=== PATIENT | male | born 1965 | race Caucasian/White ===

== ENCOUNTER 2021-06-12 10:02 | Inpatient (IN) | payer BC ==
[2021-06-12] MEDS ORDERED: ONDANSETRON 4 MG/2 ML VIAL IVP STA (10:42)
[2021-06-12] MEDS ORDERED: ACETAMINOPHEN TAB 500 MG TAB PO STA (10:42)
[2021-06-12] MEDS ORDERED: MORPHINE SULFATE 4 MG/ML SYRINGE IVP STA (10:42)
[2021-06-12] MEDS ORDERED: SODIUM CHLORIDE 0.9% 1,000 ML IV STA ×2 (10:42→12:42)
--- NOTE | 2021-06-12 10:49 | ED ---
General Adult HPI - General Chief complaint: Abdominal Pain Stated complaint: Abdominal Pain Time Seen by Provider: 06/12/21 10:27 Source: patient, RN notes reviewed Mode of arrival: ambulatory Limitations: no limitations - History of Present Illness Initial comments: 55-year-old male presents to the emergency room for a chief complaint of abdominal pain. Patient states for the past 2 days he has had left lower quadrant abdominal pain. States that it does not seem to go away. Patient denies nausea or vomiting. Denies diarrhea. Did admit to chills yesterday but no fevers that he is aware of. Patient states he could not work today because of the pain so came to the emergency room. Patient has no other complaints at this time including shortness of breath, chest pain, nausea or vomiting, headache, or visual changes. - Related Data Home Medications Medication Instructions Recorded Confirmed Ibuprofen [Motrin] 800 mg PO Q8H PRN 06/12/21 06/12/21 Allergies Allergy/AdvReac Type Severity Reaction Status Date / Time No Known Allergies Allergy Verified 06/12/21 11:46 Review of Systems ROS Statement: Those systems with pertinent positive or pertinent negative responses have been documented in the HPI. ROS Other: All systems not noted in ROS Statement are negative. Past Medical History Past Medical History: No Reported History History of Any Multi-Drug Resistant Organisms: None Reported Past Surgical History: No Surgical Hx Reported Past Psychological History: No Psychological Hx Reported Smoking Status: Current every day smoker Past Alcohol Use History: Rare Past Drug Use History: None Reported General Exam Limitations: no limitations General appearance: alert, in no apparent distress Head exam: Present: atraumatic, normocephalic Eye exam: Present: normal appearance, PERRL, EOMI. Absent: scleral icterus, conjunctival injection ENT exam: Present: normal exam, mucous membranes moist Neck exam: Present: normal inspection, full ROM. Absent: tenderness Respiratory exam: Present: normal lung sounds bilaterally. Absent: respiratory distress, wheezes Cardiovascular Exam: Present: regular rate, normal rhythm, normal heart sounds GI/Abdominal exam: Present: soft, tenderness (LLQ tenderness, no RLQ or upper abd tenderness), normal bowel sounds. Absent: distended Course Vital Signs 06/12/21 10:11 Temperature 99.3 F Pulse Rate 117 H Respiratory 18 Rate Blood Pressure 113/69 O2 Sat by Pulse 98 Oximetry Medical Decision Making - Medical Decision Making Vitals are stable. CBC does show leukocytosis with a left shift significant at 25. CMP unremarkable. Urinalysis shows sigmoid diverticulitis without definable abscess. Given leukocytosis, fever, and tenderness case was discussed with Dr. Bowers, recommends admission with IV antibiotics given elevated white count and tenderness. Discussed with the patient, he is agreeable. Source of infection was confirmed at 1132. Patient was started on IV antibiotics within 3 hours of this. - Lab Data Result diagrams: 06/12/21 10:44 06/12/21 10:44 Lab Results 06/12/21 06/12/21 06/12/21 Range/Units 10:44 10:44 10:44 WBC 25.4 H (3.8-10.6) k/uL RBC 4.86 (4.30-5.90) m/uL Hgb 14.9 (13.0-17.5) gm/dL Hct 43.4 (39.0-53.0) % MCV 89.4 (80.0-100.0) fL MCH 30.7 (25.0-35.0) pg MCHC 34.3 (31.0-37.0) g/dL RDW 13.1 (11.5-15.5) % Plt Count 349 (150-450) k/uL MPV 7.9 Neutrophils % 88 % Lymphocytes % 6 % Monocytes % 3 % Eosinophils % 1 % Basophils % 0 % Neutrophils # 22.5 H (1.3-7.7) k/uL Lymphocytes # 1.5 (1.0-4.8) k/uL Monocytes # 0.9 (0-1.0) k/uL Eosinophils # 0.3 (0-0.7) k/uL Basophils # 0.0 (0-0.2) k/uL Sodium 138 (137-145) mmol/L Potassium 4.2 (3.5-5.1) mmol/L Chloride 103 (98-107) mmol/L Carbon Dioxide 25 (22-30) mmol/L Anion Gap 10 mmol/L BUN 23 H (9-20) mg/dL Creatinine 1.32 H (0.66-1.25) mg/dL Est GFR (CKD-EPI)AfAm 71 (>60 ml/min/1.73 sqM) Est GFR (CKD-EPI)NonAf 61 (>60 ml/min/1.73 sqM) Glucose 115 H (74-99) mg/dL Plasma Lactic Acid Tree (0.7-2.0) mmol/L Calcium 9.7 (8.4-10.2) mg/dL Total Bilirubin 1.2 (0.2-1.3) mg/dL AST 40 (17-59) U/L ALT 59 H (4-49) U/L Alkaline Phosphatase 104 (38-126) U/L Total Protein 7.5 (6.3-8.2) g/dL Albumin 4.6 (3.5-5.0) g/dL Amylase 51 (30-110) U/L Lipase 25 (23-300) U/L Urine Color [place] Urine Appearance Cloudy (Clear) Urine pH 5.5 (5.0-8.0) Ur Specific [place] 1.029 (1.001-1.035) Urine Protein 1+ H (Negative) Urine Glucose (UA) Negative (Negative) Urine Ketones 1+ H (Negative) Urine Blood Small H (Negative) Urine Nitrite Negative (Negative) Urine Bilirubin 1+ H (Negative) Urine Urobilinogen 2.0 (<2.0) mg/dL Ur Leukocyte Esterase Negative (Negative) Urine RBC 3 (0-5) /hpf Urine WBC 7 H (0-5) /hpf Ur Squamous Epith Cells <1 (0-4) /hpf Urine Bacteria Rare H (None) /hpf Hyaline Casts 14 H (0-2) /lpf Urine Mucus Many H (None) /hpf 06/12/21 Range/Units 10:44 WBC (3.8-10.6) k/uL RBC (4.30-5.90) m/uL Hgb (13.0-17.5) gm/dL Hct (39.0-53.0) % MCV (80.0-100.0) fL MCH (25.0-35.0) pg MCHC (31.0-37.0) g/dL RDW (11.5-15.5) % Plt Count (150-450) k/uL MPV Neutrophils % % Lymphocytes % % Monocytes % % Eosinophils % % Basophils % % Neutrophils # (1.3-7.7) k/uL Lymphocytes # (1.0-4.8) k/uL Monocytes # (0-1.0) k/uL Eosinophils # (0-0.7) k/uL Basophils # (0-0.2) k/uL Sodium (137-145) mmol/L Potassium (3.5-5.1) mmol/L Chloride (98-107) mmol/L Carbon Dioxide (22-30) mmol/L Anion Gap mmol/L BUN (9-20) mg/dL Creatinine (0.66-1.25) mg/dL Est GFR (CKD-EPI)AfAm (>60 ml/min/1.73 sqM) Est GFR (CKD-EPI)NonAf (>60 ml/min/1.73 sqM) Glucose (74-99) mg/dL Plasma Lactic Acid Tree 1.0 (0.7-2.0) mmol/L Calcium (8.4-10.2) mg/dL Total Bilirubin (0.2-1.3) mg/dL AST (17-59) U/L ALT (4-49) U/L Alkaline Phosphatase (38-126) U/L Total Protein (6.3-8.2) g/dL Albumin (3.5-5.0) g/dL Amylase (30-110) U/L Lipase (23-300) U/L Urine Color Urine Appearance (Clear) Urine pH (5.0-8.0) Ur Specific [place] (1.001-1.035) Urine Protein (Negative) Urine Glucose (UA) (Negative) Urine Ketones (Negative) Urine Blood (Negative) Urine Nitrite (Negative) Urine Bilirubin (Negative) Urine Urobilinogen (<2.0) mg/dL Ur Leukocyte Esterase (Negative) Urine RBC (0-5) /hpf Urine WBC (0-5) /hpf Ur Squamous Epith Cells (0-4) /hpf Urine Bacteria (None) /hpf Hyaline Casts (0-2) /lpf Urine Mucus (None) /hpf Disposition Clinical Impression: Diverticulitis, Leukocytosis Disposition: ADMITTED IP TO THIS HOSP Is patient prescribed a controlled substance at d/c from ED?: No Referrals: None,Stated [Primary Care Provider] - 1-2 days Time of Disposition: 12:45
[2021-06-12 11:04] LABS: Basophils % (A) 0 %; Eosinophils # (A) 0.3 k/uL (0-0.7); Eosinophils % (A) 1 %; HCT 43.4 % (39.0-53.0); HGB 14.9 gm/dL (13.0-17.5); Lymphocytes # (A) 1.5 k/uL (1.0-4.8); Lymphocytes % (A) 6 %; MCH 30.7 pg (25.0-35.0); MCHC 34.3 g/dL (31.0-37.0); MCV 89.4 fL (80.0-100.0); Mean Platelet Volume 7.9; Monocytes # (A) 0.9 k/uL (0-1.0); Monocytes % (A) 3 %; Neutrophils # (A) 22.5 k/uL (1.3-7.7); Neutrophils % (A) 88 %; Platelet Count 349 k/uL (150-450); RBC 4.86 m/uL (4.30-5.90); RDW 13.1 % (11.5-15.5); WBC 25.4 k/uL (3.8-10.6)
[2021-06-12 11:10] LABS: Appearance,Urine Cloudy (Clear); Bacteria,Urine Rare /hpf; Bilirubin,Urine 1+ (Negative); Blood,Urine Small (Negative); Color,Urine Orange; Glucose,Urine (UA) Negative (Negative); Hyaline Casts,Urine 14 /lpf (0-2); Ketones,Urine 1+ (Negative); Leukocyte Esterase,Urine Negative (Negative); Mucus,Urine Many /hpf; Nitrite,Urine Negative (Negative); PH, Urine 5.5 (5.0-8.0); Protein,Urine 1+ (Negative); RBC,Urine 3 /hpf (0-5); Specific Gravity,Urine 1.029 (1.001-1.035); Squamous Epithelial Cell,Urine <1 /hpf (0-4); WBC,Urine 7 /hpf (0-5)
[2021-06-12 11:26] LABS: Albumin 4.6 g/dL (3.5-5.0); Calcium 9.7 mg/dL (8.4-10.2); Potassium 4.2 mmol/L (3.5-5.1); Total Bilirubin 1.2 mg/dL (0.2-1.3); Total Protein 7.5 g/dL (6.3-8.2)
--- NOTE | 2021-06-12 11:36 | CT ---
EXAMINATION TYPE: CT abdomen pelvis w con DATE OF EXAM: 06/12/2021 COMPARISON: None HISTORY: Left sided pain with nausea for [address] DLP: 831.8 mGycm CONTRAST: CT scan of the abdomen and pelvis is performed without Oral Contrast and with IV Contrast, patient in jected with 100 mL of Isovue 300. FINDINGS: LUNG BASES-: No visible nodule. No infiltrate. LIVER/GB: No calcified gallstones. No space occupying hepatic lesion. Biliary tree is of normal ca liber. PANCREAS: No inflammation. No distinct mass. SPLEEN: No splenic enlargement. No lesion seen. ADRENALS: No nodule. No thickening. KIDNEYS/BLADDER: No hydronephrosis. No nephrolithiasis. No distinct renal mass. Urinary bladder g rossly unremarkable. BOWEL: There is wall thickening and inflammatory change surrounding the sigmoid colon compatible with sigmoid diverticulitis. No definable abscess at this time. There is mild ileus of the small bowel. N o evidence for pneumoperitoneum. Nonvisualization of the appendix. GENITAL ORGANS: No gross abnormality. LYMPH NODES: No greater than 1cm abdominal or pelvic lymph nodes are appreciated. AORTA: No significant abnormality. OSSEOUS STRUCTURES: No significant abnormality is seen. OTHER: No significant additional abnormality is seen. IMPRESSION: 1. Sigmoid diverticulitis without definable abscess at this time.
[2021-06-12] MEDS ORDERED: PIPERACILLIN-TAZOBACTAM 3.375 GM in SODIUM CHLORIDE 0.9% 100 ML IVPB STA (12:42)
[2021-06-12] MEDS ORDERED: NALOXONE 0.4 MG/ML 1 ML VIAL IV PRN (12:46)
[2021-06-12] MEDS ORDERED: ONDANSETRON 4 MG/2 ML VIAL IVP PRN (12:46)
[2021-06-12] MEDS: SODIUM CHLORIDE 0.9% 1,000 ML IV SCH (13:11)
[2021-06-12] MEDS ORDERED: ACETAMINOPHEN TAB 325 MG TAB PO PRN (19:42)
[2021-06-12] MEDS: PIPERACILLIN-TAZOBACTAM 3.375 GM in SODIUM CHLORIDE 0.9% 100 ML IVPB SCH (20:44)
[2021-06-13] MEDS: PIPERACILLIN-TAZOBACTAM 3.375 GM in SODIUM CHLORIDE 0.9% 100 ML IVPB SCH ×3 (03:56→20:12)
[2021-06-13] MEDS: HYDROmorphone 0.5 MG/0.5 ML SYRINGE IVP PRN ×3 (04:01→17:41)
[2021-06-13] MEDS: SODIUM CHLORIDE 0.9% 1,000 ML IV SCH ×4 (05:33→20:13)
[2021-06-14] MEDS: HYDROmorphone 0.5 MG/0.5 ML SYRINGE IVP PRN (03:49)
[2021-06-14] MEDS: SODIUM CHLORIDE 0.9% 1,000 ML IV SCH ×4 (03:49→19:26)
[2021-06-14] MEDS: PIPERACILLIN-TAZOBACTAM 3.375 GM in SODIUM CHLORIDE 0.9% 100 ML IVPB SCH ×3 (04:30→19:21)
[2021-06-14 09:09] LABS: Basophils % (A) 0 %; Eosinophils # (A) 0.8 k/uL (0-0.7); Eosinophils % (A) 5 %; HCT 37.8 % (39.0-53.0); HGB 12.7 gm/dL (13.0-17.5); Lymphocytes # (A) 1.4 k/uL (1.0-4.8); Lymphocytes % (A) 10 %; MCH 30.2 pg (25.0-35.0); MCHC 33.6 g/dL (31.0-37.0); MCV 89.8 fL (80.0-100.0); Mean Platelet Volume 7.7; Monocytes # (A) 0.8 k/uL (0-1.0); Monocytes % (A) 6 %; Neutrophils # (A) 10.6 k/uL (1.3-7.7); Neutrophils % (A) 76 %; Platelet Count 326 k/uL (150-450); RBC 4.21 m/uL (4.30-5.90); RDW 13.1 % (11.5-15.5); WBC 13.8 k/uL (3.8-10.6)
--- NOTE | 2021-06-14 09:14 | P.PN ---
Progress Note - Text Progress Note Date: 06/13/21 Patient feels better today. His abdomen is soft. He is mildly tender left lower quadrant. On exam her lesser stable. Abdomen soft. Improving diverticula is. Patient will have his diet advanced tomorrow.
--- NOTE | 2021-06-14 09:14 | P.GSHP ---
History of Present Illness H&P Date: 06/12/21 Chief Complaint: Diverticulitis This is a 55-year-old male who was admitted to the hospital through the emergency. Patient points of abdominal pain. He was worked up found have evidence of diverticulitis without abscess. He's been admitted to the hospital for IV antibiotics. Past Medical History Past Medical History: No Reported History Additional Past Medical History / Comment(s): 06/12/21 Admitted with diverticulitis History of Any Multi-Drug Resistant Organisms: None Reported Past Surgical History: Hernia Repair Past Psychological History: No Psychological Hx Reported Smoking Status: Current every day smoker Past Alcohol Use History: Occasional Past Drug Use History: None Reported - Past Family History Father Additional Family Medical History / Comment(s): "pre-diabetic" Medications and Allergies Home Medications Medication Instructions Recorded Confirmed Type Ibuprofen [Motrin] 800 mg PO Q8H PRN 06/12/21 06/12/21 History Allergies Allergy/AdvReac Type Severity Reaction Status Date / Time No Known Allergies Allergy Verified 06/12/21 11:46 Surgical - Exam Vital Signs Temp Pulse Resp BP Pulse Ox 99.3 F 117 H 18 113/69 98 06/12/21 10:11 06/12/21 10:11 06/12/21 10:11 06/12/21 10:11 06/12/21 10:11 - General well nourished, no distress - Eyes PERRL - ENT normal pinna - Neck no masses - Respiratory normal expansion - Cardiovascular Rhythm: regular - Abdomen Abdomen: soft, non tender Results - Labs 06/14/21 08:20 06/12/21 10:44 Abnormal Lab Results - Last 24 Hours (Table) 06/14/21 Range/Units 08:20 WBC 13.8 H (3.8-10.6) k/uL RBC 4.21 L (4.30-5.90) m/uL Hgb 12.7 L (13.0-17.5) gm/dL Hct 37.8 L (39.0-53.0) % Neutrophils # 10.6 H (1.3-7.7) k/uL Eosinophils # 0.8 H (0-0.7) k/uL Assessment and Plan Assessment: Diverticulosis. Patient will receive IV and buttocks in remain on clear liquids.
[2021-06-14 09:30] LABS: ALT 22 U/L (4-49); AST 17 U/L (17-59); African American GFR (CKD) >90 (>60 ml/min/1.73 sqM); Albumin 3.2 g/dL (3.5-5.0); Albumin/Globulin Ratio 1.2; Alkaline Phosphatase 92 U/L (38-126); Anion Gap 7 mmol/L; Blood Urea Nitrogen 11 mg/dL (9-20); Calcium 8.6 mg/dL (8.4-10.2); Carbon Dioxide 26 mmol/L (22-30); Chloride 104 mmol/L (98-107); Globulin 2.6 g/dL; Glucose 97 mg/dL (74-99); Non-African American GFR(CKD) >90 (>60 ml/min/1.73 sqM); Potassium 3.9 mmol/L (3.5-5.1); Sodium 137 mmol/L (137-145); Total Bilirubin 0.7 mg/dL (0.2-1.3); Total Protein 5.8 g/dL (6.3-8.2)
--- NOTE | 2021-06-14 12:01 | P.PN ---
Subjective Progress Note Date: 06/14/21 CHIEF COMPLAINT: Acute diverticulitis HISTORY OF PRESENT ILLNESS: Patient's abdominal pain has decreased greatly. He denies any nausea or vomiting. He reports having bowel movements. His white count has decreased from 25.4-13.8. He's afebrile. He is tolerating clear liquid diet. PHYSICAL EXAM: VITAL SIGNS: Reviewed. GENERAL: Well-developed in no acute distress. HEENT: No sclera icterus. Extraocular movements grossly intact. Moist buccal mucosa. Head is atraumatic, normocephalic. ABDOMEN: Soft. Nondistended. Minimal tenderness to palpation left lower quadrant NEUROLOGIC: Alert and oriented. Cranial nerves II through XII grossly intact. ASSESSMENT: 1. Acute diverticulitis of sigmoid colon without abscess PLAN: -Continue IV antibiotics -Advance diet to full liquids -Continue pain medication as needed -Encourage patient to ambulate -Repeat CBC in a.m. Physician History Teacher note has been reviewed by physician. Signing provider agrees with the documented findings, assessment, and plan of care. Objective - Vital Signs Vital signs: Vital Signs Temp 98.3 F 06/14/21 11:50 Pulse 74 06/14/21 11:50 Resp 20 06/14/21 11:50 BP 115/70 06/14/21 11:50 Pulse Ox 95 06/14/21 11:50 Intake & Output 06/13/21 06/14/21 06/14/21 18:59 06:59 18:59 Intake Total 100 300 Balance 100 300 Intake: Intake, IV Titration 100 Amount Piperacillin-Tazobactam 3 100 .375 gm In Sodium Chloride 0.9% 100 ml @ 25 mls/hr IVPB Q8H [facility] Rx#: [id number] Oral 300 Other: Voiding Method Toilet # Voids 1 - Labs CBC & Chem 7: 06/14/21 08:20 06/14/21 08:20 Labs: Abnormal Lab Results - Last 24 Hours (Table) 06/14/21 06/14/21 Range/Units 08:20 08:20 WBC 13.8 H (3.8-10.6) k/uL RBC 4.21 L (4.30-5.90) m/uL Hgb 12.7 L (13.0-17.5) gm/dL Hct 37.8 L (39.0-53.0) % Neutrophils # 10.6 H (1.3-7.7) k/uL Eosinophils # 0.8 H (0-0.7) k/uL Total Protein 5.8 L (6.3-8.2) g/dL Albumin 3.2 L (3.5-5.0) g/dL
[2021-06-14 20:15] VITALS: RESP 16
[2021-06-15] MEDS: PIPERACILLIN-TAZOBACTAM 3.375 GM in SODIUM CHLORIDE 0.9% 100 ML IVPB SCH (03:43)
[2021-06-15] MEDS: SODIUM CHLORIDE 0.9% 1,000 ML IV SCH ×2 (03:45→10:09)
[2021-06-15 05:19] VITALS: BP 122/68; PULSE 75; TEMP 98.4
[2021-06-15 06:20] LABS: Basophils % (A) 0 %; Eosinophils # (A) 0.7 k/uL (0-0.7); Eosinophils % (A) 7 %; HCT 34.7 % (39.0-53.0); HGB 11.8 gm/dL (13.0-17.5); Lymphocytes # (A) 1.4 k/uL (1.0-4.8); Lymphocytes % (A) 14 %; MCH 30.5 pg (25.0-35.0); MCHC 33.8 g/dL (31.0-37.0); MCV 90.2 fL (80.0-100.0); Mean Platelet Volume 7.8; Monocytes # (A) 0.7 k/uL (0-1.0); Monocytes % (A) 6 %; Neutrophils # (A) 7.2 k/uL (1.3-7.7); Neutrophils % (A) 70 %; Platelet Count 323 k/uL (150-450); RBC 3.85 m/uL (4.30-5.90); RDW 13.1 % (11.5-15.5); WBC 10.3 k/uL (3.8-10.6)
--- NOTE | 2021-06-15 08:47 | CDI ---
Documentation Clarification Form Date: 06/15/2021 08:37:00 AM From: Lizzie Mcmillan CCS, CCDS Admit Date: 06/12/2021 01:08:00 PM Patient Name: Shad Vanegas Visit Number: [id number] Discharge Date: ATTENTION: The Clinical Documentation Specialists (CDI) and [facility] Coding Staff appreciate your assistance in clarifying documentation. Please respond to the clarification below the line at the bottom and electronically sign. The CDI & [facility] Coding staff will review the response and follow-up if needed. Please note: Queries are made part of the Legal Health Record. If you have any questions, please contact the author of this message via ITS. Dr. Brian Bowers: The patient presented with Left Lower Quadrant Abdominal Pain and chills. Diagnosed with Diverticulitis of the Sigmoid Colon per a CT of the Abdomen & Pelvis, Admitted for IV Antibiotics. Additional clarification regarding the etiology/cause of the clinical indicators is requested. History/Risk Factors per the 06/12 H/P: Previous Hernia Repair, Smoker. Clinical Indicators: Presented to the ED on 06/12 with LLQ abdominal pain and chills, no fever, nausea or vomiting. 06/12 VS: T 99.3 - 102.9, P 117, R 18 - 20, BP 113/59, PO 98 RA, BMI: 24.4 06/12 LAB: WBC 25.4, Neutrophils 22.5; BUN 23, Creatinine 1.32, Glucose 115, Lactic Acid 1.0, ALT 59 06/12 UA: [place], Cloudy, 1+ Protein, 1+ Ketones, Small Blood, Negative Nitrite, WBC 7, Hyaline Casts 14 No Blood or Urine cultures. 06/12 CT Abdomen/Pelvis: Sigmoid diverticulitis without definable abscess at this time. Treatment: IV Morphine, IV Zofran, IV Na Cl 1,000 mls @ 999 mls/hr q1H x2, IV Zosyn 200 mls/hr x1, IV Dilaudid0.5 mg q3H, IV Zosyn/Tazobactam Na 25 mls/hr q8H. In your professional opinion, please clarify if these findings signify one of the following conditions: [ xxx ] Sepsis POA [ ] Sepsis, Not POA [ ] Severe Sepsis with organ failure, please specify: [ ] Other, please specify [ ] Unable to determine (Template Last Reviewed: November 2020) MTDD
--- NOTE | 2021-06-15 12:36 | P.DS ---
Providers Date of admission: 06/12/21 13:08 Expected date of discharge: 06/15/21 Attending physician: Brian Bowers Primary care physician: Stated None Hospital Course: Discharge diagnosis 1. Acute diverticulitis of sigmoid colon without abscess Hospital course This is a 55-year-old male who presented to the hospital with complaints of left lower quadrant abdominal pain. He was found have evidence of acute diverticulitis on computed tomography scan. Patient started on IV antibiotics. Diet was advanced slowly. His white count has normalized. He's afebrile. His pain has resolved. Patient is having bowel movements. He is up and ambulating. He is stable for discharge. Patient will require colonoscopy and outpatient setting. Please refer to chart for any further details. Physician Food Services Director note has been reviewed by physician. Signing provider agrees with the documented findings, assessment, and plan of care. Patient Condition at Discharge: Stable Plan - Discharge Summary Discharge Rx Participant: Yes New Discharge Prescriptions: New metroNIDAZOLE [Flagyl] 500 mg PO Q8HR #30 tab Levofloxacin [Levaquin] 500 mg PO DAILY 10 Days #10 tab Discontinued Ibuprofen [Motrin] 800 mg PO Q8H PRN PRN Reason: Pain Discharge Medication List Levofloxacin [Levaquin] 500 mg PO DAILY 10 Days #10 tab 06/15/21 [Rx] metroNIDAZOLE [Flagyl] 500 mg PO Q8HR #30 tab 06/15/21 [Rx] Follow up Appointment(s)/Referral(s): None,Stated [Primary Care Provider] - 1-2 days Brian Bowers MD [STAFF PHYSICIAN] - 1 Week Activity/Diet/Wound Care/Special Instructions: patient wants pneumonia vaccine at discharge Recommend high fiber diet Recommend Benefiber daily Discharge Disposition: HOME SELF-CARE
== END 2021-06-15 14:36 | disposition home or self-care (01) | DRG 872 ==
LOC: EC 10:02 → 5NMEDONC 13:08
PROVIDERS: ADMIT Surgery; ATTEND Surgery
DX: A41.9 Sepsis, unspecified organism (principal); K57.32 Diverticulitis of large intestine without perforation or abscess without bleeding; F17.200 Nicotine dependence, unspecified, uncomplicated
CPT/HCPCS: 36415; 74177; 80053; 81001; 82150; 83605; 83690; 85025; 96361; 96365; 96366; 96375; 99285